=== PATIENT | female | born 1980 | race Caucasian/White ===

== ENCOUNTER → 2017-07-12 | Outpatient (CLI) | payer SELFPAY ==
[~2017-07-12] MED LIST: BCPs; CIPRO500 MG PO; HYDACE5 PO
== END ==
LOC: LAB 17:53 → LAB SHORT 17:53
PROVIDERS: Registered Nurse Community Health
DX: Z12.4 Encounter for screening for malignant neoplasm of cervix (principal)
CPT/HCPCS: 87624; G0123

== ENCOUNTER → 2020-04-27 | Outpatient (CLI) | payer OTHER ==
[~2020-04-27] MED LIST changes: +BONINE25 MG PO; +LORA2 PO
== END ==
LOC: LAB SHORT 18:01 → PLD 18:01
PROVIDERS: Registered Nurse Community Health
DX: Z01.419 Encounter for gynecological examination (general) (routine) without abnormal findings (principal)
CPT/HCPCS: G0123

== ENCOUNTER → 2021-05-31 | Outpatient (CLI) | payer OTHER ==
[2021-05-31 17:48] LABS: Hematocrit 42.3 % (33.0-51.0)
== END ==
LOC: LAB SHORT 15:05
PROVIDERS: Registered Nurse Community Health
DX: D50.9 Iron deficiency anemia, unspecified (principal); E11.9 Type 2 diabetes mellitus without complications
CPT/HCPCS: 83036; 85014; 85018

== ENCOUNTER 2021-07-20 07:13 | Day surgery (SDC) | payer OTHER ==
[2021-07-18 16:10] LABS: BASOPHILS ABSOLUTE AUTO 0.05 K/mm3 (0.00-0.23); BASOPHILS PERCENT AUTO 1 % (0-2); EOSINOPHILS ABSOLUTE AUTO 0.17 K/mm3 (0.00-0.68); EOSINOPHILS PERCENT AUTO 3 % (0-6); Hematocrit 38.2 % (33.0-51.0); Hemoglobin 12.9 g/dL (11.5-16.0); IMMATURE GRAN ABSOLUTE AUTO 0.01 K/mm3 (0.00-0.10); IMMATURE GRAN PERCENT AUTO 0 % (0-1); LYMPHOCYTES ABSOLUTE AUTO 2.49 K/mm3 (0.84-5.20); LYMPHOCYTES PERCENT AUTO 39 % (21-46); MONOCYTES ABSOLUTE AUTO 0.53 K/mm3 (0.16-1.47); MONOCYTES PERCENT AUTO 8 % (4-13); Mean Corpuscular HGB 28.3 pg (26.0-34.0); Mean Corpuscular HGB Conc 33.8 g/dL (31.5-36.5); Mean Corpuscular Volume 84 fL (80-100); Mean Platelet Volume 11.4 fL (9.1-12.4); NEUTROPHILS ABSOLUTE AUTO 3.08 K/mm3 (1.96-9.15); NEUTROPHILS PERCENT AUTO 49 % (41-73); Platelet Count 305 K/mm3 (150-400); RDW Coefficient Variation 12.8 % (11.7-14.2); RDW Standard Deviation 39.1 fL (35.1-46.3); Red Blood Cell Count 4.56 M/mm3 (3.80-5.20); White Blood Cell Count 6.33 K/mm3 (4.00-11.30)
[2021-07-18 17:24] LABS: Bun/Creatinine Ratio 15.5 (12.0-20.0); Creatinine, Blood 0.58 mg/dL (0.40-1.00); Potassium, Blood 3.4 mmol/L (3.5-5.5)
[~2021-07-20] VITALS: Ht 157.5 cm; Wt 107.2 kg
[~2021-07-20 07:13] MED LIST changes: +Adipex-P37.5 MG PO; +MULVITA PO; +SERT50 PO
--- NOTE | 2021-07-20 10:23 | NUR ---
07/20/21 Sharif3 Tim Carrizales 500 CC URINE IN [place] UPON DC AT END OF CASE
--- NOTE | 2021-07-20 11:37 | NUR ---
PATIENT CAME BACK FROM PACU TODAY 07/20/21 AT 1120. POD 0 LAP HYSTER PATIENT IS A&OX4 BUT IS SLIGHTLY DROWSY BUT FOLLOWS COMMANDS. PATIENT DENIES PAIN AND NAUSEA AT THIS TIME. 3X ABD DERMABOND LAP SITES ARE C/D/I. ABD IS SOFT AND TENDER TO TOUCH. BERLIN PAD HAS SMALL AMOUNT OF BLEEDING. TOLERATING SMALL AMOUNT OF PO INTAKE. IV FLUIDS RUNNING. FAMILY AT BEDSIDE. CALL LIGHT WITHIN REACH.
--- NOTE | 2021-07-20 17:40 | NUR ---
SHIFT SUMMARY: A&Ox4. VSS. TOLERATING PO INTAKE AND ELIMINATING WITHOUT DIFFICULTY. PAIN CONTROLLED WITH PRN NORCO. 3 ABD LAP SITES C/D/I. FAMILY AT BEDSIDE. REPORT GIVIN TO ONCOMING IT SECURITY SPECIALIST NURSE.
--- NOTE | 2021-07-21 04:02 | NUR ---
SHIFT SUMMARY NO ACUTE CHANGES TO REPORT OVERNIGHT. PT HAS RESTED T/O THE SHIFT, NO COMPLAINTS OF PAIN. SHE HAS BEEN INDEPENDENT IN THE ROOM. LAP SITES C/D/I, ABD SOFT. VITALS STABLE. PLAN IS FOR DC TODAY. BED IN LOWEST POSITION, CALL LIGHT WITHIN REACH.
== END 2021-07-21 09:38 | disposition home or self-care (01) ==
LOC: ORSCMMR 07:13 → SURS 11:12 → ORSCMMR 11:12 → SURS 07-21 09:38 → ORD 07-21 10:45 → ORSCMMR 07-21 10:45
PROVIDERS: Obstetrics & Gynecology
PROC: 0UT74ZZ Resection of Bilateral Fallopian Tubes, Percutaneous Endoscopic Approach (ICD-10-PCS; principal; 2021-07-20 07:30)
PROC: 0UT94ZZ Resection of Uterus, Percutaneous Endoscopic Approach (ICD-10-PCS; principal; 2021-07-20 07:30)
PROC: 8E0W4CZ Robotic Assisted Procedure of Trunk Region, Percutaneous Endoscopic Approach (ICD-10-PCS; principal; 2021-07-20 07:30)
DX: N85.2 Hypertrophy of uterus (principal); D25.0 Submucous leiomyoma of uterus; N81.11 Cystocele, midline; N92.0 Excessive and frequent menstruation with regular cycle; E11.9 Type 2 diabetes mellitus without complications; K21.9 Gastro-esophageal reflux disease without esophagitis; E66.01 Morbid (severe) obesity due to excess calories; Z68.41 Body mass index [BMI] 40.0-44.9, adult; Z79.899 Other long term (current) drug therapy
CPT/HCPCS: 58573; S2900; 36415; 80048; 82947; 84703; 85025; 86850; 86900; 86901; 88305; 88307; A9270; J0690; J1885; J2250; J2710

== ENCOUNTER → 2022-01-31 | Outpatient (CLI) | payer OTHER ==
[2022-01-31 19:46] LABS: Influenza A, PCR NEGATIVE (NEGATIVE); Influenza B, PCR NEGATIVE (NEGATIVE); Resp Syncytial Virus, PCR NEGATIVE (NEGATIVE)
[2022-01-31 20:37] LABS: SARS-Cov-2 (COVID-19) PCR, MMC POSITIVE (NEGATIVE)
== END | disposition home or self-care (01) ==
LOC: LAB 16:20 → LAB SHORT 16:20
PROVIDERS: Physician Assistant
DX: Z13.83 Encounter for screening for respiratory disorder NEC (principal); J09.X2 Influenza due to identified novel influenza A virus with other respiratory manifestations; U07.1 COVID-19; R05.9 Cough, unspecified
CPT/HCPCS: 0241U

== ENCOUNTER → 2022-02-08 | Outpatient (CLI) | payer OTHER ==
[2022-02-08 20:57] LABS: Follicle Stimulating Hormone 7.3 mIU/ml; Luteinizing Hormone 5.7 mIU/ml
== END | disposition home or self-care (01) ==
LOC: LAB SHORT 16:30 → LAB 16:30
PROVIDERS: Registered Nurse Community Health
DX: E28.319 Asymptomatic premature menopause (principal); E11.9 Type 2 diabetes mellitus without complications
CPT/HCPCS: 83001; 83002; 83036

== ENCOUNTER → 2022-07-22 | Outpatient (CLI) | payer OTHER | LOC: LAB SHORT 10:09 → LAB 10:09 | DX: E87.1 Hypo-osmolality and hyponatremia (principal) | CPT/HCPCS: 84295 ==

== ENCOUNTER → 2023-02-18 | Outpatient (CLI) | payer OTHER ==
[2023-02-18 14:55] LABS: BASOPHILS ABSOLUTE AUTO 0.04 K/mm3 (0.00-0.23); BASOPHILS PERCENT AUTO 1 % (0-2); EOSINOPHILS ABSOLUTE AUTO 0.16 K/mm3 (0.00-0.68); EOSINOPHILS PERCENT AUTO 3 % (0-6); Hematocrit 43.4 % (33.0-51.0); Hemoglobin 14.7 g/dL (11.5-16.0); IMMATURE GRAN ABSOLUTE AUTO 0.01 K/mm3 (0.00-0.10); IMMATURE GRAN PERCENT AUTO 0 % (0-1); LYMPHOCYTES ABSOLUTE AUTO 1.84 K/mm3 (0.84-5.20); LYMPHOCYTES PERCENT AUTO 33 % (21-46); MONOCYTES ABSOLUTE AUTO 0.54 K/mm3 (0.16-1.47); MONOCYTES PERCENT AUTO 10 % (4-13); Mean Corpuscular HGB 30.2 pg (26.0-34.0); Mean Corpuscular HGB Conc 33.9 g/dL (31.5-36.5); Mean Corpuscular Volume 89 fL (80-100); Mean Platelet Volume 10.3 fL (9.1-12.4); NEUTROPHILS ABSOLUTE AUTO 3.02 K/mm3 (1.96-9.15); NEUTROPHILS PERCENT AUTO 54 % (41-73); Platelet Count 263 K/mm3 (150-400); RDW Coefficient Variation 12.9 % (11.7-14.2); RDW Standard Deviation 42.1 fL (35.1-46.3); Red Blood Cell Count 4.87 M/mm3 (3.80-5.20); White Blood Cell Count 5.61 K/mm3 (4.00-11.30)
[2023-02-18 14:59] LABS: Bun/Creatinine Ratio 12.2 (12.0-20.0); Calcium, Blood 9.1 mg/dL (8.5-10.1); Creatinine, Blood 0.82 mg/dL (0.40-1.00); Potassium, Blood 3.9 mmol/L (3.5-5.5)
== END ==
LOC: LAB 14:49 → LAB SHORT 14:49
PROVIDERS: Physician Assistant Surgical
DX: R42 Dizziness and giddiness (principal)
CPT/HCPCS: 80048; 85025

== ENCOUNTER 2023-03-27 20:56 | Emergency (ER) | payer OTHER ==
[~2023-03-27] VITALS: Ht 160 cm; Wt 112.5 kg
[~2023-03-27 20:56] MED LIST changes: -Atarax10 MG PO; -CETI5 PO; -INSULANI; -LOSA25 PO; -METF500 PO; -NOVOLOG100 UNIT/2 INJ; -ONDA4 PO; -PRAVASTATIN SOD10 MG PO
[2023-03-27 22:05] LABS: Albumin/Globulin Ratio 1.1 (0.8-1.8); Bilirubin, Total 0.4 mg/dL (0.1-1.0); Bun/Creatinine Ratio 19.7 (12.0-20.0); Calcium, Blood 9.8 mg/dL (8.5-10.1); Creatinine, Blood 0.51 mg/dL (0.40-1.00); Globulin, Blood 3.7 g/dL (2.2-4.0); Potassium, Blood 4.2 mmol/L (3.5-5.5); Total Protein, Blood 7.7 g/dL (6.4-8.2)
[2023-03-27 22:29] LABS: Source, Urine Clean Catch
[2023-03-27 22:34] LABS: Bilirubin, Urine Neg (Neg); Blood, Urine 1+ (Neg); Glucose Qualitative, Urine 2+ (Neg); Ketones, Urine Neg (Neg); Leukocyte Esterase, Urine 1+ (Neg); Nitrite, Urine Neg (Neg); Protein, Urine Neg (Neg); Urobilinogen, Urine NORM (Normal)
[2023-03-27 22:35] LABS: BASOPHILS ABSOLUTE AUTO 0.05 K/mm3 (0.00-0.23); BASOPHILS PERCENT AUTO 1 % (0-2); EOSINOPHILS ABSOLUTE AUTO 0.26 K/mm3 (0.00-0.68); EOSINOPHILS PERCENT AUTO 4 % (0-6); Hematocrit 41.1 % (33.0-51.0); Hemoglobin 14.2 g/dL (11.5-16.0); IMMATURE GRAN ABSOLUTE AUTO 0.01 K/mm3 (0.00-0.10); IMMATURE GRAN PERCENT AUTO 0 % (0-1); LYMPHOCYTES ABSOLUTE AUTO 2.57 K/mm3 (0.84-5.20); LYMPHOCYTES PERCENT AUTO 40 % (21-46); MONOCYTES ABSOLUTE AUTO 0.53 K/mm3 (0.16-1.47); MONOCYTES PERCENT AUTO 8 % (4-13); Mean Corpuscular HGB 30.1 pg (26.0-34.0); Mean Corpuscular HGB Conc 34.5 g/dL (31.5-36.5); Mean Corpuscular Volume 87 fL (80-100); Mean Platelet Volume 10.7 fL (9.1-12.4); NEUTROPHILS ABSOLUTE AUTO 2.99 K/mm3 (1.96-9.15); NEUTROPHILS PERCENT AUTO 47 % (41-73); Platelet Count 270 K/mm3 (150-400); RDW Coefficient Variation 12.3 % (11.7-14.2); RDW Standard Deviation 39.5 fL (35.1-46.3); Red Blood Cell Count 4.72 M/mm3 (3.80-5.20); White Blood Cell Count 6.41 K/mm3 (4.00-11.30)
[2023-03-27 22:41] LABS: Appearance, Urine Clear (Clear); Color, Urine Yellow (P-Yellow)
[2023-03-27 22:42] LABS: Bacteria Few /hpf; Red Blood Cells, Urine 0-2 /hpf (0-2); Squamous Epithelial Cells Few /hpf (Few); White Blood Cells, Urine 0-2 /hpf (0-5)
[2023-03-27] MEDS ORDERED: METF500 PO (22:57)
[2023-03-27] MEDS ORDERED: PRAVASTATIN SOD10 MG PO (22:58)
[2023-03-27] MEDS ORDERED: LOSA25 PO (22:58)
[2023-03-27] MEDS ORDERED: NOVOLOG100 UNIT/2 INJ (22:58)
[2023-03-27] MEDS ORDERED: INSULANI (22:59)
[2023-03-27] MEDS ORDERED: CETI5 PO (22:59)
[2023-03-27] MEDS ORDERED: Atarax10 MG PO (23:00)
[2023-03-28 01:00] VITALS: BP 121/63
[2023-03-28] MEDS ORDERED: ONDA4 PO (01:20)
== END 2023-03-28 01:45 | disposition home or self-care (01) ==
LOC: ER 20:56
PROVIDERS: Emergency Medicine; Student in an Organized Health Care Education/Training Program
DX: R10.32 Left lower quadrant pain (principal); R74.01 Elevation of levels of liver transaminase levels; E11.9 Type 2 diabetes mellitus without complications; Z79.84 Long term (current) use of oral hypoglycemic drugs; Z79.4 Long term (current) use of insulin; Z79.899 Other long term (current) drug therapy
CPT/HCPCS: 74177; 80053; 81001; 83690; 85025; 87086; 93005; 93010; 99284-25; A9270; J1885; J2270; J2405; J7030; Q9967

== ENCOUNTER → 2023-03-27 | Outpatient (CLI) | payer OTHER ==
[~2023-03-27] MED LIST changes: +Atarax10 MG PO; +CETI5 PO; +INSULANI; +LOSA25 PO; +METF500 PO; +NOVOLOG100 UNIT/2 INJ; +ONDA4 PO; +PRAVASTATIN SOD10 MG PO
[2023-03-28 16:24] LABS: Appearance, Urine Clear (Clear); Bilirubin, Urine Neg (Neg); Blood, Urine Neg (Neg); Color, Urine Yellow (P-Yellow); Glucose Qualitative, Urine Neg (Neg); Ketones, Urine Neg (Neg); Leukocyte Esterase, Urine Neg (Neg); Nitrite, Urine Neg (Neg); Protein, Urine Neg (Neg); Urobilinogen, Urine NORM (Normal)
== END ==
LOC: LAB 16:30 → LAB SHORT 16:30
PROVIDERS: Nurse Practitioner Family
DX: N39.0 Urinary tract infection, site not specified (principal)
CPT/HCPCS: 81003; 87086

== ENCOUNTER → 2023-05-01 | Outpatient (CLI) | payer OTHER ==
[~2023-05-01] MED LIST changes: +Atarax10 MG PO; +CETI5 PO; +INSULANI; +LOSA25 PO; +METF500 PO; +NOVOLOG100 UNIT/2 INJ; +ONDA4 PO; +PRAVASTATIN SOD10 MG PO
[2023-05-01 15:14] LABS: Follicle Stimulating Hormone 9.1 mIU/ml; Luteinizing Hormone 4.5 mIU/ml
== END | disposition home or self-care (01) ==
LOC: LAB SHORT 13:19
PROVIDERS: Registered Nurse Community Health
DX: E89.41 Symptomatic postprocedural ovarian failure (principal)
CPT/HCPCS: 83001; 83002

== ENCOUNTER 2024-03-07 23:40 | Emergency (ER) | payer OTHER ==
[~2024-03-07] VITALS: Ht 157.5 cm; Wt 108.0 kg
[2024-03-08 00:36] LABS: BASOPHILS ABSOLUTE AUTO 0.04 K/mm3 (0.00-0.23); BASOPHILS PERCENT AUTO 1 % (0-2); EOSINOPHILS ABSOLUTE AUTO 0.22 K/mm3 (0.00-0.68); EOSINOPHILS PERCENT AUTO 3 % (0-6); Hematocrit 42.9 % (33.0-51.0); Hemoglobin 14.8 g/dL (11.5-16.0); IMMATURE GRAN ABSOLUTE AUTO 0.02 K/mm3 (0.00-0.10); IMMATURE GRAN PERCENT AUTO 0 % (0-1); LYMPHOCYTES ABSOLUTE AUTO 2.89 K/mm3 (0.84-5.20); LYMPHOCYTES PERCENT AUTO 34 % (21-46); MONOCYTES ABSOLUTE AUTO 0.74 K/mm3 (0.16-1.47); MONOCYTES PERCENT AUTO 9 % (4-13); Mean Corpuscular HGB 30.3 pg (26.0-34.0); Mean Corpuscular HGB Conc 34.5 g/dL (31.5-36.5); Mean Corpuscular Volume 88 fL (80-100); Mean Platelet Volume 10.2 fL (9.1-12.4); NEUTROPHILS ABSOLUTE AUTO 4.55 K/mm3 (1.96-9.15); NEUTROPHILS PERCENT AUTO 54 % (41-73); Platelet Count 289 K/mm3 (150-400); RDW Coefficient Variation 12.7 % (11.7-14.2); RDW Standard Deviation 40.5 fL (35.1-46.3); Red Blood Cell Count 4.89 M/mm3 (3.80-5.20); White Blood Cell Count 8.46 K/mm3 (4.00-11.30)
[2024-03-08 01:11] LABS: Albumin, Blood 3.9 g/dL (3.4-5.0); Bilirubin, Total 0.7 mg/dL (0.1-1.0); Bun/Creatinine Ratio 18.1 (12.0-20.0); Calcium, Blood 9.8 mg/dL (8.5-10.1); Creatinine, Blood 0.66 mg/dL (0.40-1.00); Potassium, Blood 3.7 mmol/L (3.5-5.5); Total Protein, Blood 7.9 g/dL (6.4-8.2)
[2024-03-08] MEDS ORDERED: NS 1,000 ML IV SCH (04:05)
[2024-03-08] MEDS ORDERED: Meclizine HCl 25 MG Tab PO ONE (04:05)
[2024-03-08] MEDS ORDERED: Ondansetron HCl 2 MG / ML 2ML Vial IV ONE (04:05)
[2024-03-08] MEDS ORDERED: INSULIN GL100 UNIT/2 SQ (04:15)
[2024-03-08] MEDS ORDERED: BUDEPRION XL 300MG (04:16)
[2024-03-08] MEDS ORDERED: PRAV20 PO (04:18)
[2024-03-08] MEDS ORDERED: LOSA50 PO (04:18)
[2024-03-08] MEDS ORDERED: BUPROPION XL150 M1 PO (04:19)
[2024-03-08 05:00] VITALS: BP 123/85
[2024-03-08] MEDS ORDERED: MECL25 PO (05:15)
== END 2024-03-08 05:26 | disposition home or self-care (01) ==
LOC: ER 23:40
PROVIDERS: Student in an Organized Health Care Education/Training Program
DX: H81.10 Benign paroxysmal vertigo, unspecified ear (principal); E11.9 Type 2 diabetes mellitus without complications; Z79.84 Long term (current) use of oral hypoglycemic drugs; Z79.4 Long term (current) use of insulin; Z79.899 Other long term (current) drug therapy; I10 Essential (primary) hypertension
CPT/HCPCS: 80053; 83690; 85025; 93005; 93010; 96374; 99284-25; A9270; J2405; J7030

== ENCOUNTER → 2024-06-23 | Outpatient (CLI) | payer OTHER ==
[~2024-06-23] MED LIST changes: +BUDEPRION XL 300MG; +BUPROPION XL150 M1 PO; +INSULIN GL100 UNIT/2 SQ; +LOSA50 PO; +MECL25 PO; +PRAV20 PO
[2024-06-23 19:09] LABS: Influenza A, PCR NEGATIVE (NEGATIVE); Influenza B, PCR NEGATIVE (NEGATIVE); Resp Syncytial Virus, PCR NEGATIVE (NEGATIVE); SARS-Cov-2 (COVID-19) PCR, MMC NEGATIVE (NEGATIVE)
== END ==
LOC: LAB 11:55 → LAB SHORT 11:55
PROVIDERS: Nurse Practitioner Family
DX: J02.9 Acute pharyngitis, unspecified (principal); R05.9 Cough, unspecified
CPT/HCPCS: 0241U